=== PATIENT | female | born 2000 | race Caucasian/White ===

== ENCOUNTER 2020-11-15 03:15 | Emergency (ER) | payer OTHER ==
[~2020-11-15] VITALS: Ht 162.6 cm; Wt 78.9 kg
[2020-11-15] MEDS ORDERED: ONDANSETRON ODT8 MG PO (03:53)
== END 2020-11-15 04:18 | disposition home or self-care (01) ==
LOC: ED 03:15
DX: R11.11 Vomiting without nausea (principal); Z91.030 Bee allergy status; Z88.0 Allergy status to penicillin
CPT/HCPCS: 81001; 84703; 99284

== ENCOUNTER 2021-03-01 13:06 | Emergency (ER) | payer OTHER ==
[~2021-03-01] VITALS: Ht 162.6 cm; Wt 78.9 kg
[~2021-03-01 13:06] MED LIST: ONDANSETRON ODT8 MG PO
[2021-03-01] MEDS ORDERED: ZOFRAN4 MG PO (16:51)
== END 2021-03-01 17:06 | disposition home or self-care (01) ==
LOC: ED 13:06
DX: K52.9 Noninfective gastroenteritis and colitis, unspecified (principal); F17.200 Nicotine dependence, unspecified, uncomplicated; Z20.822 Contact with and (suspected) exposure to COVID-19; Z88.0 Allergy status to penicillin; Z91.013 Allergy to seafood
CPT/HCPCS: 80053; 81001; 83690; 83735; 84703; 85025; 96374; 99284-25; C9803; J2405; J7030; U0003

== ENCOUNTER 2021-10-28 23:35 | Emergency (ER) | payer OTHER ==
[~2021-10-28] VITALS: Ht 162.6 cm; Wt 78.9 kg
[~2021-10-28 23:35] MED LIST changes: +ZOFRAN4 MG PO
[2021-10-29] MEDS ORDERED: ONDANSETRON ODT4 MG PO (01:36)
--- NOTE | 2021-10-30 17:19 | EKG ---
[facility] [facility] [address] [facility] [place] [address] Signed Sinus bradycardia with marked sinus arrhythmia Left axis deviation Right bundle branch block Abnormal ECG No previous ECGs available Confirmed by MELISSA GALLEGOS MD ([id number]) on 10/30/2021 5:19:33 PM Electronically Signed By: MELISSA GALLEGOS MD 10/30/21 1719 PATIENT NAME: PING DAVILA Electrocardiogram DATE OF : [birth year] PHYSICIAN: MELISSA GALLEGOS MD REPORT #: [id number] REPORT IS CONFIDENTIAL AND NOT TO BE RELEASED WITHOUT AUTHORIZATION
== END 2021-10-29 02:35 | disposition home or self-care (01) ==
LOC: ED 23:35
DX: O99.411 Diseases of the circulatory system complicating pregnancy, first trimester (principal); I49.8 Other specified cardiac arrhythmias; O21.0 Mild hyperemesis gravidarum; O99.281 Endocrine, nutritional and metabolic diseases complicating pregnancy, first trimester; O99.331 Smoking (tobacco) complicating pregnancy, first trimester; F17.200 Nicotine dependence, unspecified, uncomplicated; Z91.030 Bee allergy status; Z88.0 Allergy status to penicillin
CPT/HCPCS: 36415; 80053; 81001; 84443; 85025; 93005; 93010; 96374; 99284-25; A9270; J2405; J7030

== ENCOUNTER 2022-05-10 10:14 | Inpatient (IN) | payer OTHER ==
--- NOTE | ~2022-05-10 | OR ---
[facility] [address] [place], [place] [address] Draft DATE OF OPERATION: 05/18/2022 SURGEON: Shakir Tirado MD The patient of Dr. Tirado. PREOPERATIVE DIAGNOSIS: Term , previous section. POSTOPERATIVE DIAGNOSIS: Term , previous section. PROCEDURE: Repeat low transverse segment section, delivery live male . DAIRY FEED WORKER: Elda Puckett DO ANESTHESIA: Spinal. ESTIMATED BLOOD LOSS: 500 mL. COMPLICATIONS: None. DRAINS: Ames to bladder. FINDINGS: Live male , Apgars 9 and 9, weight 6 pounds 0 ounces. had a bulge of the placental disc, but no actual suction to the lobe. Normal uterus. Normal tubes and ovaries bilateral. DESCRIPTION OF PROCEDURE: The patient was brought to the operating room, placed in the supine position. After adequate spinal anesthesia was obtained, she was prepped and draped in usual sterile fashion. Ames catheter was placed in the bladder. Pfannenstiel skin incision was made through previous surgical scar using a scalpel. Subcutaneous tissue was dissected with PATIENT NAME: PING DAVILA OPERATIVE REPORT DATE OF : [birth year] REPORT #: [id number] PHYSICIAN: SHAKIR TIRADO MD PCP: NO PRIMARY CARE PHYSICIAN REPORT IS CONFIDENTIAL AND NOT TO BE RELEASED WITHOUT AUTHORIZATION [facility] [address] [place], [place] [address] Draft the scalpel and Bovie. The fascia was nicked with scalpel and extended in transverse fashion using curved scissors. The underlying abdominal musculature was bluntly and sharply from the fascia above and below the incision. The abdominal musculature was bluntly and sharply along the midline. Peritoneum elevated, nicked with scissors and extended in vertical fashion using curved scissors. The Tremaine self-retaining retractor was inserted into the incision and tightened in place. The lower uterine segment was identified and the lower uterine segment was carefully nicked with scalpel in the midline. The incision was extended in transverse fashion using finger dissection. Bulging bag of clear fluid came from the incision. This was opened with pickups with teeth. The infant was noted to be in the vertex MAEVE presentation. The head was easily delivered. There was a nuchal cord loosely x1. This was easily removed and the rest of the infant easily delivered from the incision. The cord was doubly clamped and cut. The passed off table in good condition to the awaiting nurse. The placenta was manually removed and the placenta inspected because of the previous ultrasound diagnosis of possible suction to the low bed placenta. The uterine cavity was then explored with a lap pad to remove any retained membranes. An angle stitch of 0 Monocryl was placed at one end in the incision and a running locking stitch of 0-Monocryl starting at the other end used to close the incision. A 2nd running stitch of 0 Monocryl was used to imbricate the 1st layer. Good hemostasis was noted. The entire pelvis was irrigated, suctioned, and examined, and any superficial bleeding spots were cauterized with the Bovie. When good hemostasis was obtained, the Tremaine retractor was removed and then the peritoneum closed using running stitch of 2-0 Vicryl suture. The abdominal musculature was reapproximated using interrupted stitches of 0 Vicryl suture. The abdominal wall incision was irrigated, suctioned, and examined, and any bleeding spots cauterized with the Bovie. The fascia was then closed using two running stitches of 0 Vicryl suture meeting in the midline. The subcutaneous tissue was irrigated, suctioned, and examined, and any bleeding spots cauterized with the Bovie. Subcutaneous tissue was then closed using interrupted stitches of 3-0 Vicryl suture. Skin was reapproximated using skin clips. The patient tolerated the procedure well, went to the recovery room in good condition. The sponge, needle, and instrument count were correct at the end of the procedure. Shakir Tirado MD MJB/MODL /[id number] PATIENT NAME: PING DAVILA OPERATIVE REPORT DATE OF : [birth year] REPORT #: [id number] PHYSICIAN: SHAKIR TIRADO MD PCP: NO PRIMARY CARE PHYSICIAN REPORT IS CONFIDENTIAL AND NOT TO BE RELEASED WITHOUT AUTHORIZATION [facility] [address] [facility] [place] [address] Draft Copies: ~ PATIENT NAME: LOLAPING ART OPERATIVE REPORT DATE OF : [birth year] REPORT #: [id number] PHYSICIAN: SHAKIR TIRADO MD PCP: NO PRIMARY CARE PHYSICIAN REPORT IS CONFIDENTIAL AND NOT TO BE RELEASED WITHOUT AUTHORIZATION
[~2022-05-10 10:14] MED LIST changes: +ONDANSETRON ODT4 MG PO
--- NOTE | 2022-05-19 15:26 | PR ---
[facility] [address] [facility] [place], [place] [address] Signed PP Progress Notes Datetime Report Generated by CPN: 05/19/2022 15:26 SUBJECTIVE: [id number] Pain: Within Normal Limits Nausea/Vomiting: Denies Flatus: Yes Bowel Movement: No Vital Signs: [id number] Vital Signs: Reviewed; Within Normal Limits Cardiovascular: Normal Respiratory: Normal Abdomen/Uterus: Normal Lochia: Normal Vulva/Perineum: Not Done Breasts: Not Done CVA Tenderness: Normal Extremities: Normal Incision: Normal Exam Comments: Fundus firm U-2 nontender IMPRESSION/PLAN/PROCEDURES: [id number] Impression: Normal Progression Plan: Continue Present Management Progress Notes: Pt seen and examined. Doing well. Ambulating, voiding, and tolerating full diet. Pain and lochia minimal. well. No fevers/chills or other concerns. Anticipate d/c home tomorrow. Signing Physician: Kimberly Theodore DO Copies: ~ *Electronically Signed* 05/19/22 1526 KIMBERLY THEODORE (ALBINA) DO PATIENT NAME: PING DAVILA PROGRESS NOTE DATE OF : 99 PHYSICIAN: KIMBERLY THEODORE) DO RPT #: [id number] REPORT IS CONFIDENTIAL AND NOT TO BE RELEASED WITHOUT AUTHORIZATION
--- NOTE | 2022-05-20 08:04 | PR ---
[facility] [address] [place], [place] [address] Signed PP Progress Notes Datetime Report Generated by CPN: 05/20/2022 08:04 SUBJECTIVE: [id number] Pain: Within Normal Limits Nausea/Vomiting: Denies Flatus: Yes Bowel Movement: No Vital Signs: [id number] Vital Signs: Reviewed; Within Normal Limits Cardiovascular: Normal Respiratory: Normal Abdomen/Uterus: Normal Lochia: Normal Vulva/Perineum: Not Done Breasts: Not Done CVA Tenderness: Normal Extremities: Normal Incision: Normal Progress: Normal Exam Comments: Fundus firm U-2 nontender. Incision healing well w/ jam in place IMPRESSION/PLAN/PROCEDURES: [id number] Impression: Normal Progression Plan: Discharge Progress Notes: Pt seen and examined. Doing well. Ambulating, voiding, and tolerating full diet. Pain and lochia minimal. well. No fevers/chills or other concerns. Desires d/c home today. Reviewed education, medications, and anticipated course in detail. Recommend staple removal in office next Tuesday; pt will call to schedule. Planning Nexplanon for pp contraception. Signing Physician: Kimberly Theodore DO Copies: ~ *Electronically Signed* 05/20/22 0804 KIMBERLY THEODORE (ALBINA) DO PATIENT NAME: PING DAVILA PROGRESS NOTE DATE OF : [birth year] PHYSICIAN: KIMBERLY THEODORE (JD) DO RPT #: [id number] REPORT IS CONFIDENTIAL AND NOT TO BE RELEASED WITHOUT AUTHORIZATION
== END 2022-05-20 10:15 | disposition home or self-care (01) | DRG 788 ==
LOC: FBC 05-18 05:29
PROVIDERS: ADMIT General Practice; ATTEND General Practice
PROC: 10D00Z1 Extraction of Products of Conception, Low, Open Approach (ICD-10-PCS; principal; 2022-05-18 07:30)
DX: O34.211 Maternal care for low transverse scar from previous cesarean delivery (principal); Z3A.39 39 weeks gestation of pregnancy; Z37.0 Single live birth; Z67.40 Type O blood, Rh positive; O69.81X0 Labor and delivery complicated by cord around neck, without compression, not applicable or unspecified; Z88.0 Allergy status to penicillin; Z91.013 Allergy to seafood
CPT/HCPCS: 01961; 36415; 64488; 76942; 85027; 86850; 86900; 86901; A9270; J1100; J1580; J1885; J2274; J2370; J2405; J2590; J2795; J3490; J7060

== ENCOUNTER 2022-09-30 19:32 | Emergency (ER) | payer OTHER ==
[~2022-09-30] VITALS: Ht 162.6 cm; Wt 79.0 kg
== END 2022-09-30 21:52 | disposition home or self-care (01) ==
LOC: ED 19:32
DX: S00.03XA Contusion of scalp, initial encounter (principal); W22.8XXA Striking against or struck by other objects, initial encounter; F17.200 Nicotine dependence, unspecified, uncomplicated; Z91.013 Allergy to seafood; Z88.0 Allergy status to penicillin
CPT/HCPCS: 70450; 84703; 99284-25; A9270

== ENCOUNTER 2023-03-27 12:59 | Emergency (ER) | payer OTHER ==
[~2023-03-27] VITALS: Ht 162.6 cm; Wt 68.0 kg
--- OUTSIDE RECORDS SUMMARY | ~2023-03-27 | XMS | Continuity of Care Document ---
Demographics + + + | Address | [address] | | | [place] [address] | + + + | Preferred Language | Unknown | + + + | Marital Status | Polygamous | + + + | Hinduism Affiliation | Unknown | + + + | Race | White | + + + | Ethnic Group | Not or | + + + Author + + + | Author | [facility] | + + + | Organization | [facility] | + + + | Address | [address] | | | [place], [place] [address] | + + + | Phone | | + + + Care Team Providers + + + + | Care Field Assistant Name | Role | Phone | + + + + Unavailable | Unavailable | + + + + Allergies No information. Encounters No information. Functional Status No information. Immunizations No information. Medications No information. Problems + + + + | date | description | facility | + + + + | 2023-03-05 21:08 | NICOTINE DEPENDENCE, | [facility] | | | UNSPECIFIED, UNCOMPLICATED | | + + + + | 2023-03-05 21:08 | GASTRO-ESOPHAGEAL | [facility] | | | LACERATION-HEMORRHAGE | | | | SYNDROME | | + + + + | 2023-03-05 21:08 | HEMATEMESIS | [facility] | + + + + | 2023-03-05 21:08 | ALLERGY STATUS TO | [facility] | | | PENICILLIN | | + + + + | 2023-03-05 21:08 | ALLERGY TO SEAFOOD | [facility] | + + + + Procedures No information. Results/Labs No information. Social History +--------+ + + | date | description | facility | +--------+ + + Vital Signs No information."
[~2023-03-27 12:59] MED LIST changes: +CARAFATE1 GM PO
--- OUTSIDE RECORDS SUMMARY | 2023-03-27 13:03 | XMS ---
PreManage Notification: PING DAVILA Security It Network Engineer Events No recent Security Events currently on file CRITERIA MET - [facility] - 2 Visits in 30 Days CARE PROVIDERS -[place]- Dentist: Gear Lapping Machine Operator [facility] PHONE: [phone] SHONNA SHANNON Physician Current PHONE: Unknown Vinnie has no Care Guidelines for this patient. Lesa VISIT COUNT (12 MO.) [address] [place] [address] TOTAL 3 NOTE: Visits indicate total known visits. ED/UCC VISIT TRACKING (12 MO.) 03/27/2023 13:00 [facility] TYPE: Emergency COMPLAINT: - ABDOMINAL PAIN 03/05/2023 21:08 [facility] [place] TYPE: Emergency COMPLAINT: - VOMITING BRIGHT RED BLOOD DIAGNOSES: - Allergy status to penicillin - Allergy to seafood - Contact with and (suspected) exposure to COVID-19 - Gastro-esophageal laceration-hemorrhage syndrome - Hematemesis - Nicotine dependence, unspecified, uncomplicated 09/30/2022 19:33 [facility] [place] TYPE: Emergency COMPLAINT: - HEAD INJURY DIAGNOSES: - Allergy status to penicillin - Allergy to seafood - Contusion of scalp, initial encounter - Nausea - Nicotine dependence, unspecified, uncomplicated - Striking against or struck by other objects, initial encounter INPATIENT VISIT TRACKING (12 MO.) 05/18/2022 05:29 [facility] [place] TYPE: [facility] COMPLAINT: - REPEAT DIAGNOSES: - 39 weeks gestation of - 39 weeks gestation of - Allergy status to penicillin - Allergy to seafood - Cannabis use, unspecified, uncomplicated - Cannabis use, unspecified, uncomplicated - Drug use complicating childbirth - Drug use complicating childbirth - Labor and delivery complicated by cord around neck, without compression, not applicable or unspecified - Maternal care for low transverse scar from previous delivery - Maternal care for unspecified type scar from previous delivery - Other mental disorders complicating childbirth - Other mental disorders complicating childbirth - Other specified anxiety disorders - Other specified anxiety disorders - Single live - Single live - Type O blood, Rh positive - Type O blood, Rh positive [email or web address]
[2023-03-27 14:11] LABS: BASOPHILS 0.2 % (0-2); EOSINOPHILS 0.2 % (0-6); HEMATOCRIT 42.5 % (35.0-50.0); HEMOGLOBIN 14.1 g/dL (12.0-18.0); LYMPHOCYTES 13.6 % (24-44); MCH 25.9 (27-36); MCHC 33.2 g/dl (30-36); MCV 78.1 fl (81-99); MONOCYTES 5.5 % (0-12); NEUTROPHILS 80.5 % (39-80); PLATELET COUNT 284 K/uL (140-440); RBC 5.45 M/ul (4.3-5.7); RDW 17.4 (10.5-15.0)
[2023-03-27 14:29] LABS: ALBUMIN 3.9 g/dL (3.4-5.0); ALBUMIN/GLOBULIN RATIO 0.98 (1.1-2.4); ANION GAP 16.9 (7-21); BILIRUBIN, TOTAL 0.4 ng/dL (0.2-1.0); BUN/CREATININE RATIO 12.28 (6.0-28.6); CALCIUM 9.8 mg/dL (8.5-10.1); CREATININE, SERUM 0.57 mg/dL (0.55-1.02); POTASSIUM 3.9 mmol/L (3.5-5.1); PROTEIN, TOTAL 7.9 g/dL (6.4-8.2)
[2023-03-27 14:37] LABS: BILIRUBIN, URINE NEGATIVE (negative); BLOOD/HGB, URINE NEGATIVE (Negative); KETONE, URINE TRACE (Negative); LEUK ESTERASE, URINE NEGATIVE (negative); NITRITE, URINE NEGATIVE (negative)
[2023-03-27 18:05] VITALS: BP 105/56
== END 2023-03-27 18:06 | disposition home or self-care (01) ==
LOC: ED 12:59
PROVIDERS: Emergency Medicine
DX: R10.32 Left lower quadrant pain (principal); R11.10 Vomiting, unspecified; F17.200 Nicotine dependence, unspecified, uncomplicated; Z91.013 Allergy to seafood; Z88.0 Allergy status to penicillin
CPT/HCPCS: 36415; 74177; 76830; 76856; 80053; 81003; 83690; 84703; 85025; 96375; 99284-25; J1170; J1200; J2405